=== PATIENT | female | born 1965 | race Caucasian/White ===

== ENCOUNTER 2025-02-16 05:51 | Day surgery (SDC) | payer SELFPAY, OTHER ==
[2025-02-13 09:38] LABS: Hematocrit 42.4 % (37-47); Hemoglobin 14.4 g/dL (12.0-15.0); Mean Corp Hgb Conc 34.0 g/dL (32-36); Mean Corpuscular Volume 94.2 fL (81-99); Mean Platelet Vol. 9.8 fl (6.2-12.0); Platelet Count 303 K/mm3 (150-450); RBC Distribution Width CV 12.8 % (11.6-14.6); RBC Distribution Width SD 43.9 fl (35.1-43.9); Red Blood Count 4.50 M/mm3 (4.2-5.4); White Blood Count 6.8 K/mm3 (4.4-11.0)
[2025-02-13 10:12] LABS: Anion Gap 11 (5-15); BUN 12 mg/dL (4-19); BUN/Creat Ratio 16.7 RATIO (10-20); Calcium,Total 9.4 mg/dL (7.6-11.0); Carbon Dioxide 27.1 mmol/L (21.0-32.0); Chloride 100 mmol/L (98-108); Glucose 103 mg/dL (70-99); Potassium 4.3 mmol/L (3.3-5.1)
[2025-02-16] VITALS (11 sets, daily range): BP systolic 98–126; BP diastolic 55–82; PULSE 78–109; RESP 10–16; TEMP 36.6–36.8; O2SAT 91–99; BMI 34.0
[2025-02-16] MEDS: Lactated Ringers 1,000 ML 15 ML IV (06:31)
[2025-02-16] MEDS: Lactated Ringers 1,000 ML 1000 ML IV (07:23)
[2025-02-16] MEDS: Midazolam 2 MG/2 ML Syringe IV (07:23)
[2025-02-16] MEDS: Cefazolin 1 GM/5 ML Vial 2 GM IV (07:31)
[2025-02-16] MEDS: Lidocaine 1% /Epi 1:100 (20ml) 20 ML Vial (07:36)
[2025-02-16] MEDS: fentaNYL 100 MCG/2 ML Ampul IV (07:39)
== END 2025-02-16 10:19 | disposition home or self-care (01) ==
LOC: SDC 05:56 → AC 05:58
PROVIDERS: PCP Nurse Practitioner Family; Referring Provider Urology; Visit Provider Urology
PROC: 0TJB8ZZ Inspection of Bladder, Via Natural or Artificial Opening Endoscopic (ICD-10-PCS; CPT 57288; principal; 2025-02-16 07:20)
DX: N39.3 Stress incontinence (female) (male) (principal); N36.41 Hypermobility of urethra; N76.0 Acute vaginitis; I10 Essential (primary) hypertension; Z79.899 Other long term (current) drug therapy; N95.2 Postmenopausal atrophic vaginitis; L90.0 Lichen sclerosus et atrophicus; E78.00 Pure hypercholesterolemia, unspecified
CPT/HCPCS: 57288; 00940; 36415; 80048; 85027; 93005; C1771; J2405